=== PATIENT | male | born 1950 | race Caucasian/White ===

== ENCOUNTER 2018-04-28 11:11 | Emergency (ER) | payer MEDICARE ==
[~2018-04-28] VITALS: Ht 175.3 cm; Wt 137.3 kg
[2018-04-28 11:16] VITALS: BP 147/69
[2018-04-28] MEDS ORDERED: ipratropium/albuterol 3ml nebule NEB ONE (11:35)
== END 2018-04-28 12:28 | disposition home or self-care (01) ==
LOC: ER 11:11
DX: J44.1 Chronic obstructive pulmonary disease with (acute) exacerbation (principal); Z90.89 Acquired absence of other organs; Z91.030 Bee allergy status
CPT/HCPCS: 94640; 94760; 99283